=== PATIENT | male | born 1950 | race Caucasian/White ===

== ENCOUNTER 2022-03-04 15:24 | Observation (INO) ==
[2022-03-04 15:30] VITALS: BMI 39.5
--- NOTE | 2022-03-04 16:14 | DR.CP ---
HPI Time Seen Time Seen by Provider: 03/04/22 16:14 PCP Primary Care Physician: KAHLIL Guillen CUSTOMER ENGINEER Complaint Chief Complaint Doctor Comments: 71 y/o male presents for evaluation. Having intermittent chest discomfort, off/on, occurs at rest. Pain is mild, pressure like, substernal region. Radiated once to the left shoulder, to the upper abdomen today. Nothing makes it better, nothing makes it worse. Denies recent illness. No fever, chills, dyspnea, cough, nausea, vomiting, bowel or bladder issues. No prior h/o heart problems. Chief Complaint:: PT REPORTS HE HAS BEEN HAVING CP OFF AND ON FOR A WEEK AND TODAY HE DRIVING HOME FROM [employer] AND THE PAIN CAME BACK AND IT IS WORSE, ( PT STATES HIS PAIN IS WORSE STANDING THAN LAYING) PT STATES HIS PAIN IS MID CHEST, INTERMITTANT DULL CP .BR COVID-19 Coronavirus risk:travel/contact w/high risk person: No Has patient experienced Coronavirus symptoms: No Reviewed Nurses Notes Review: Yes Source History Provided: Patient Mode of Arrival Mode of Arrival: Ambulatory Timing Onset of Chief Complaint: 02/25/22 PMH PMH Past Medical History: Yes Past Medical History: Diabetes and Hypertension Past Surgical History: Yes Surgical History: Ortho Surgery Family History History of Family Medical Conditions: Yes Family Medical History: Diabetes Mellitus and Heart Failure Social History Does patient currently use any type of tobacco product: No Have you used tobacco products in the last 12 months: No Type of Tobacco Use: None Does any household member use tobacco: No Alcohol Use: None Do you use any recreational Drugs:: No Lives With: Family Lives Where: Home Travel Risk Coronavirus risk:travel/contact w/high risk person: No Has patient experienced Coronavirus symptoms: No Infectious screening In the last 2 months have you had wt loss of >10#?: NO Have you had fever, night sweats or hemotysis?: No Have you traveled outside the country in the last 6 months?: No Isolation: Standard ROS Review of Systems Constitutional: No Symptoms Reported Eyes: No Symptoms Reported ENTM: No Symptoms Reported Respiratoy: No Symptoms Reported Cardiovascular: See HPI Gastrointestinal/Abdominal: No Symptoms Reported Genitourinary: No Symptoms Reported Neurological: No Symptoms Reported Musculoskeletal: No Symptoms Reported Integumentary: No Symptoms Reported Hematologic/Lymphatic: No Symptoms Reported Psychiatric: No Symptoms Reported All Other Systems: Reviewed and Negative PE Vitals Vitals: Temperature 97.2 F Pulse Rate 83 Respiratory Rate 20 Blood Pressure [Right Arm] 120/80 Blood Pressure [Left Arm] 159/73 Blood Pressure 180/83 O2 Sat by Pulse Oximetry 97 General General Appearance: Alert and In No Apparent Distress Eyes Eye exam: PERRL and EOMI ENT ENT Exam: Normal Exam Chest Chest Inspection: Normal Inspection; negative Tenderness Respiratory Respiratory Exam: Normal Lung Sounds Bilat; negative Accessory Muscle Use or Respiratory Distress Cardiovascular Cardiovascular Exam: Irregular Rhythm and Normal Heart Sounds Edema: Normal Abdominal Exam Abdominal Exam: Normal Inspection, Normal Bowel Sounds and Soft; negative Tenderness Extremities Extremities Exam: Normal Inspection, Full ROM and Tenderness; negative Edema Back Back Exam: Normal Inspection Neurologic Neurological Exam: Alert, Oriented X3 and CN II-XII Intact; negative Motor Sensory Deficit Psychiatric Psychiatric Exam: Normal Affect Skin Skin Exam: Warm and Dry MDM Differential Diagnosis Differential Diagnosis: Angina, Aortic Dissection, Chest Wall Pain, Myocardial Infarction and Pericarditis COURSE Treatment Treatment: 71 y/o male with intermittent chest pain past week. EKG done at triage shows atrial fibrillation, no ischemic changes. No known h/o Afib in the past. W/u initiated. Troponin elevated at 132. + new onset of atrial fi brillation. Pt deserves admission for cardiac w/u. Dr Chowdary available for consult tomorrow. Discussed with Dr Knapp, covering for Dr Hagan, accepts the admission. RN contacted cardiology, Dr Chowdary, and notified him of consult. Requested ECHO (already ordered) and NPO after midnight. ROR Labs Reviewed Laboratory Results Reviewed?: Yes Result Diagrams: 03/04/22 16:35 03/04/22 16:35 Laboratory: WBC 7.7 X10^3/uL (3.6-10.0) 03/04/22 16:35 RBC 4.80 X10^6/uL (4.7-6.0) 03/04/22 16:35 Hgb 15.0 g/dL (13.5-18.0) 03/04/22 16:35 Hct 43.2 % (42.0-54.0) 03/04/22 16:35 MCV 90.1 fL (80.0-100.0) 03/04/22 16:35 MCH 31.2 pg (27.0-34.0) 03/04/22 16:35 MCHC 34.7 g/dL (33.0-35.0) 03/04/22 16:35 RDW 14.5 % (11.6-16.5) 03/04/22 16:35 Plt Count 207 X10^3/uL (150.0-450.0) 03/04/22 16:35 MPV 8.6 fL (7.4-11.0) 03/04/22 16:35 Neut % (Auto) 69.7 % (42.0-75.0) 03/04/22 16:35 Lymph % (Auto) 21.5 % (21.0-51.0) 03/04/22 16:35 Robertson % (Auto) 6.6 % (0.0-13.0) 03/04/22 16:35 Eos % (Auto) 1.5 % (0.9-2.9) 03/04/22 16:35 Baso % (Auto) 0.7 % (0.2-1.0) 03/04/22 16:35 Neut # (Auto) 5.3 x10^3/uL (2.2-4.8) H 03/04/22 16:35 Lymph # (Auto) 1.7 X10^3/uL (1.3-2.9) 03/04/22 16:35 Robertson # (Auto) 0.5 x10^3/uL (0.3-0.8) 03/04/22 16:35 Eos # (Auto) 0.1 x10^3/uL (0.0-0.2) 03/04/22 16:35 Baso # (Auto) 0.1 X10^3/uL (0.0-0.1) 03/04/22 16:35 Absolute Nucleated RBC 0.0 /100WBC 03/04/22 16:35 Sodium 138 mmol/L (136-145) 03/04/22 16:35 Corrected Sodium 144 mmol/L (136-145) 03/04/22 16:35 Potassium 4.3 mmol/L (3.5-5.1) 03/04/22 16:35 Chloride 101 mmol/L (98-107) 03/04/22 16:35 Carbon Dioxide 29.7 mmol/L (21-32) 03/04/22 16:35 BUN 26 mg/dL (7-18) H 03/04/22 16:35 Creatinine 1.96 mg/dL (0.70-1.30) H 03/04/22 16:35 Est GFR (MDRD) Af Amer 43 (>60) L 03/04/22 16:35 Est GFR (MDRD) Non-Af 36 (>60) L 03/04/22 16:35 Glucose 351 mg/dL (65-99) H 03/04/22 16:35 Calcium 8.6 mg/dL (8.5-10.1) 03/04/22 16:35 Corrected Calcium 9.3 mg/dL (8.5-10.1) 03/04/22 16:35 Total Bilirubin 0.30 mg/dL (0.2-1.0) 03/04/22 16:35 AST 14 Units/L (15-37) L 03/04/22 16:35 ALT 18 Units/L (12-78) 03/04/22 16:35 Alkaline Phosphatase 117 Units/L (46-116) H 03/04/22 16:35 Creatine Kinase 119 Units/L (39-308) 03/04/22 16:35 Troponin I High Sens 132.0 ng/L (4.0-60.0) H* 03/04/22 16:35 B-Natriuretic Peptide 53.9 pg/mL (0-79) 03/04/22 16:35 Total Protein 6.9 g/dL (6.4-8.2) 03/04/22 16:35 Albumin 3.1 g/dL (3.4-5.0) L 03/04/22 16:35 Globulin 3.8 g/dL (2.5-4.5) 03/04/22 16:35 Albumin/Globulin Ratio 0.8 Ratio (1.1-2.1) L 03/04/22 16:35 TSH 3rd Generation 0.825 uIU/mL (0.358-3.74) 03/04/22 16:35 Elevated glucose, troponin, Cr XRAY XRAY Interpreted by: Both X-ray Results: Cardiomegaly, no acute abnormalities EKG Rate: 109 [place]: RAD Rhythm: Afib Block: None Hypertrophy: None ST: Nonsp Opioid Opioid Risk Tool Age (Sanjay box if 16-45): No History of Preadolescent Sexual Abuse: No Total: 0 Total Score Risk Category: Low Risk Copyright: Jamil ERVIN predicting aberrant behaviors Discharge Plan Diagnosis Discharge Problem: New onset atrial fibrillation, Abnormal cardiac enzyme level Discharge Plan Patient Disposition: 09 ADMITTED INPATIENT Condition: Stable Orders to Discharge Patient Discharge Orders: Transfer (Routine); Ordered 03/04/22 Ordered By: Jamarcus Bradford
[2022-03-04] MEDS ORDERED: NS 500 ML IV 500 ML IV ONE ×2 (16:24→16:31)
[2022-03-04 16:48] LABS: BASOPHILS # (AUTO) 0.1 X10^3/uL (0.0-0.1); BASOPHILS % (AUTO) 0.7 % (0.2-1.0); EOSINOPHILS # (AUTO) 0.1 x10^3/uL (0.0-0.2); EOSINOPHILS % (AUTO) 1.5 % (0.9-2.9); HEMATOCRIT 43.2 % (42.0-54.0); LYMPHOCYTES # (AUTO) 1.7 X10^3/uL (1.3-2.9); LYMPHOCYTES % (AUTO) 21.5 % (21.0-51.0); MEAN CORPUSCULAR HEMOGLOBIN 31.2 pg (27.0-34.0); MEAN CORPUSCULAR HGB CONC 34.7 g/dL (33.0-35.0); MEAN CORPUSCULAR VOLUME 90.1 fL (80.0-100.0); MEAN PLATELET VOLUME 8.6 fL (7.4-11.0); MONOCYTES # (AUTO) 0.5 x10^3/uL (0.3-0.8); MONOCYTES % (AUTO) 6.6 % (0.0-13.0); NEUTROPHILS # (AUTO) 5.3 x10^3/uL (2.2-4.8); NEUTROPHILS % (AUTO) 69.7 % (42.0-75.0); RED CELL DISTRIBUTION WIDTH 14.5 % (11.6-16.5); WHITE BLOOD COUNT 7.7 X10^3/uL (3.6-10.0)
[2022-03-04 17:12] LABS: ALBUMIN 3.1 g/dL (3.4-5.0); CALCIUM 8.6 mg/dL (8.5-10.1); CARBON DIOXIDE 29.7 mmol/L (21-32); COR CA(FOR HYPOALB) 9.3 mg/dL (8.5-10.1); CREATININE 1.96 mg/dL (0.70-1.30); TOTAL PROTEIN 6.9 g/dL (6.4-8.2); TSH (3RD GENERATION) 0.825 uIU/mL (0.358-3.74)
--- NOTE | 2022-03-04 17:46 | RAD ---
Chest AP portableIndication: Acute chest painCOMPARISONNo recent similar priorFINDINGSThere is no pneumothorax or effusion. Monitor leads obscure minimal detail. Heart size is prominent. No consolidation is seenIMPRESSIONCardiomegaly without other acute chest process. Study is position limited. Follow-up with PA and lateral chest as needed.Electronically signed by: CARMEN ROJAS (Mar 04, 2022 17:44:49)
[2022-03-04] MEDS ORDERED: LOPRESSOR INJ 5 MG AMP ONE (20:12)
[2022-03-04] MEDS ORDERED: LOPRESSOR INJ 5 MG AMP IVP ONE (20:20)
[2022-03-05 02:01] VITALS: BP 190/91
== END 2022-03-05 01:30 | disposition short-term general hospital (02) ==
LOC: U 15:24 → ER 15:24 → U 19:30
PROVIDERS: ADMIT Obstetrics & Gynecology Obstetrics; ATTEND Internal Medicine
DX: I21.3 ST elevation (STEMI) myocardial infarction of unspecified site; R74.8 Abnormal levels of other serum enzymes; R07.89 Other chest pain; E11.65 Type 2 diabetes mellitus with hyperglycemia; R77.8 Other specified abnormalities of plasma proteins; I48.91 Unspecified atrial fibrillation